=== PATIENT | female | born 1970 | race Caucasian/White ===

== ENCOUNTER 2017-09-22 05:43 | Day surgery (SDC) | payer OTHER, SELFPAY ==
[2017-09-22] VITALS (10 sets, daily range): BP systolic 121–138; BP diastolic 73–96; PULSE 78–112; RESP 16–18; TEMP 36–37.6; O2SAT 96–100; BMI 29.0
[2017-09-22 06:20] LABS: Absolute Lymphocyte Count 2.42 X10^3/ul (0.83-4.51); Absolute Neutrophil Count 6.6 X10^3/uL (2.0-7.7); Basophil# 0.03 X10^3/uL; Basophil% 0.3 % (0-1); Eosinophil# 0.26 X10^3/uL; Eosinophils% 2.6 % (0-5); Hematocrit 39.1 % (37-47); Hemoglobin 12.6 g/dl (12.0-15.0); Lymphocyte # 2.42 X10^3/ul (4.0); Mean Corp Hgb Conc 32.2 g/gl (32-36); Mean Corpuscular Hgb 30.5 pg (27.0-32.0); Mean Corpuscular Volume 94.7 fL (81-99); Mean Platelet Vol. 9.6 fl (6.2-12.0); Monocyte# 0.75 X10^3/uL; Monocyte% 7.4 % (0-10); Neutrophil # 6.61 X10^3/uL (2.7-7.7); Neutrophil % 65.6 % (47-70); Platelet Count 335 K/mm3 (150-450); RBC Distribution Width CV 14.1 % (11.6-14.6); RBC Distribution Width SD 47.4 fl (35.1-43.9); Red Blood Count 4.13 M/mm3 (4.2-5.4); White Blood Count 10.1 K/mm3 (4.4-11.0)
[2017-09-22 06:30] LABS: POSITIVE COUNT NO; POSITIVE DIFFERENTIAL NO; POSITIVE MORPHOLOGY NO
[2017-09-22 06:40] LABS: Internal QC Validated? YES +Cl - CLEAR BKGD; Pregnancy, Urine Negative Negative
--- NOTE | 2017-09-22 07:15 | HYST_PTH ---
PATIENT: DEVAUGHN ZARATE [place] [facility] [place][id number] AGE/SX: 46/F ROOM: RE09/22/[address]: Dr. Shasha Means MD : 1970 BED: DIS: 09/22/2017 SPEC #: [id number] RECD: 09/22/17 11:21 STATUS: ZAC CONTRERAS #: [id number] JUSTUS: 09/22/17 07:[address]: Shasha Means DEPT: SURGICAL PATHOLOGY RECD BY: Zeus Contreras ENTERED: 09/22/17 11:22 SP TYPE: HYSTERECT OTHR DR: Dr. Mariela Herrera, DO Tissues: Uterus, NOS Procedures: Surgery Specimen Level V HEADER OPERATION: Total vaginal hysterectomy PRE-OP DIAGNOSIS: Dysmenorrhea, menorrhagia with regular cycle, uterine fibroid TISSUE SUBMITTED: Uterus and cervix MICROSCOPIC DIAGNOSIS Uterus and cervix, vaginal hysterectomy: Cervix - no pathologic diagnosis. Endometrium ? secretory endometrium. Myometrium ? leiomyomas, intramural, submucosal and subserosal (largest measuring 3.5 cm in greatest dimension). ALEXANDRA:abiodun 09/23/17 MICROSCOPIC DESCRIPTION Slides are reviewed. GROSS DESCRIPTION Received in fixative is one container labeled with the patient's name and designated uterus. The specimen consists of a uterus with attached cervix measuring 10.7 x 6 x 5.2 cm and weighing 128 gm. The ectocervix is unremarkable. The cervical os is oval in contour. The endocervical canal measures 3.2 cm in length and is grossly unremarkable. The triangular endometrial cavity measures 4 x 2.5 cm. The light alatorre, velvety endometrium measures up to 0.2 cm in thickness. The myometrium measures 1.8 cm in average thickness and is distorted by multiple spherical, rubbery nodules ranging in size from 0.5 to 3.5 cm in greatest dimension. The nodules are submucosal, intramural and subserosal in location. Also present free in the container is an irregular fragment of reddish-alatorre soft tissue measuring 3.5 x 1 x 0.5 cm. [employer] sections are submitted in nine cassettes as follows: 1 - anterior cervix, 2 - posterior cervix, 3 & 4 - anterior uterine wall, 5 & 6 - posterior uterine wall, 7 ? largest myometrial mass, 8 ? second and third largest myometrial masses, 9 ? fragment of tissue free in the container. / AM:abiodun 09/22/17 TC:1 [facility]: [id number]
[2017-09-22] MEDS: Vasopressin 20 UNITS/ML Vial (07:41)
[2017-09-22] MEDS: Ketorolac 30 MG/ML Syringe IV ×2 (11:05→16:04)
[2017-09-22] MEDS: Lactated Ringers 1,000 ML 125 ML IV (11:07)
[2017-09-22] MEDS: buPROPion (XL) 300 MG TABLET.XL PO (12:35)
[2017-09-22] MEDS: Acetaminophen 500 MG Tablet 1000 MG PO (14:32)
--- NOTE | 2017-09-22 15:20 | PCM.DC.VHY ---
Discharge Diet: No Restrictions Discharge Activity: Return to Normal Activity, May Not Drive, May Shower May resume sexual activity in: 6-8 weeks Call your doctor if your incision/area has: Continuous Slow Oozing, Sudden Increased Bleeding, Increased Pain/ Swelling, Increased Redness, Foul Smelling Discharge Call your doctor if you observe: Fever of 101 or Higher, Inability to urinate, Inability to have a bowel movement, Using more than one pad per hour Allergies/Adverse Reactions: Allergies No Known Allergies Allergy (Unverified 09/15/17 13:27) Medications to take at Discharge cholecalciferol (vitamin D3) 5,000 unit capsule 5,000 unit PO DAILY 06/16/17 lactobacillus combination no.8 3 billion cell capsule 3,000 mmu cells PO QDAY 06/16/17 multivitamin,ca-mwre-abuhtlxh tablet 1 tab PO QDAY 06/16/17 bupropion HCl XL 300 mg 24 hr tablet, extended release 300 mg PO QAM 07/14/17 Ibuprofen [Motrin] 600 mg PO Q6H PRN PRN #30 tab 09/22/17 Naproxen [Naprosyn] 250 - 500 mg PO Q8H PRN PRN #30 tab 09/22/17 Oxycodone HCl/Acetaminophen [Percocet 5-325] 2 tablet PO Q4H PRN PRN 7 Days #28 tablet 09/22/17 The following prescriptions were given: Oxycodone HCl/Acetaminophen [Percocet 5-325] 2 tablet PO Q4H PRN PRN 7 Days #28 tablet PRN Reason: Moderate-Severe pain Ibuprofen [Motrin] 600 mg PO Q6H PRN PRN #30 tab PRN Reason: Pain Naproxen [Naprosyn] 250 - 500 mg PO Q8H PRN PRN #30 tab PRN Reason: MILD PAIN Primary Care Physician: Mariela Herrera DO [Primary Care Provider] - Please Follow Up With: Shasha Means MD - [phone]
--- NOTE | 2017-09-22 15:23 | OP.PCM_ITS ---
Report of Operation Date of Procedure: 09/22/17 Pre-Operative Diagnosis: aub fibroids Post-Operative Diagnosis: same Surgery/Procedure Performed:: total vaginal hysterectomy Type of Anesthesia:: General Specimen's removed: uterus Drains: freeman Estimated Blood Loss (mL): 100 Fluids Replaced: crystalloid Description of Procedure: Patient was taken to the operating room and was placed under general anesthesia was prepped and draped in normal sterile fashion in the dorsal lithotomy position. Preoperative antibiotics and SCDs and Freeman catheter was placed inside the bladder. Weighted speculum was placed in the vagina and the anterior and posterior lip of the cervix was grasped with 2 Eric clamps and circumferentially injected with dilute vasopressin. A circumferential incision was made with a scalpel and the posterior cul-de-sac was entered into sharply and a longneck speculum was placed. The anterior cul-de-sac was also dissected down and entered into sharply and the uterosacral ligaments were clamped cut and suture ligated bilaterally followed by the cardinal ligaments which were Clamped cut and suture ligated bilaterally with 0 Monocryl. The uterus serially descended and progressive bites were taken bilaterally up to the level of the utero-ovarian ligament bilaterally which was clamped transected and double ligated with 0 Monocryl suture and 0 Vicryl free tie. Bilateral fallopian tubes and ovaries were well visualized and noted be within normal limits and the bilateral fallopian tubes were transected across the base with a Priti clamp and removed and sutured with 0 Vicryl suture. Excellent hemostasis was noted. Posterior peritoneum was reapproximated with 2-0 Vicryl and a modified Watt stitch was placed through the posterior vaginal cuff and bilateral uterosacral ligaments across the posterior cul-de-sac skimming along to provide apical support to the vagina. The vagina was closed with figure-of- eight 0 Vicryl pop offs including the posterior and anterior peritoneum in the reapproximation. Excellent hemostasis was noted. All instruments removed from the vagina clear urine was noted at the end of the procedure and patient was awoken and taken recovery in stable condition. Grafts/Implants Used: none - Complications none - Admit VTE Documentation VTE Present on Admission: No VTE Mechan Device Prophylaxis: SCD's
[2017-09-22 16:57] LABS: Absolute Lymphocyte Count 0.91 X10^3/ul (0.83-4.51); Absolute Neutrophil Count 14.2 X10^3/uL (2.0-7.7); Hemoglobin 11.3 g/dl (12.0-15.0); Lymphocyte # 0.91 X10^3/ul (4.0); Lymphocyte % 5.9 % (19-41); Mean Corp Hgb Conc 32.3 g/gl (32-36); Mean Corpuscular Hgb 29.9 pg (27.0-32.0); Mean Corpuscular Volume 92.6 fL (81-99); Mean Platelet Vol. 9.5 fl (6.2-12.0); Monocyte# 0.25 X10^3/uL; Monocyte% 1.6 % (0-10); Neutrophil # 14.17 X10^3/uL (2.7-7.7); Neutrophil % 92.3 % (47-70); Platelet Count 306 K/mm3 (150-450); RBC Distribution Width SD 47.4 fl (35.1-43.9); Red Blood Count 3.78 M/mm3 (4.2-5.4); White Blood Count 15.4 K/mm3 (4.4-11.0)
[2017-09-22 17:17] LABS: POSITIVE COUNT NO; POSITIVE DIFFERENTIAL NO; POSITIVE MORPHOLOGY NO
[2017-09-22] MEDS: oxyCODONE 5 MG Tablet PO (20:16)
--- NOTE | 2017-09-23 06:23 | PCM.OPRPT ---
Problem List (1) Factor V deficiency Status: Acute (2) Dysmenorrhea Status: Chronic (3) Menorrhagia with regular cycle Status: Chronic (4) Uterine fibroid Status: Chronic Qualifiers: Uterine leiomyoma location: unspecified location Qualified Code(s): D25.9 - Leiomyoma of uterus, unspecified; D25.9 - Leiomyoma of uterus, unspecified Report of Operation Date of Procedure: 09/22/17 Pre-Operative Diagnosis: aub fibroids Post-Operative Diagnosis: same Surgery/Procedure Performed:: total vaginal hysterectomy Description of Surgical Findings:: fibroid uterus normal tubes and ovaries shared services manager: Swati Gonzalez Type of Anesthesia:: General Specimen's removed: uterus Drains: freeman Estimated Blood Loss (mL): 100 Fluids Replaced: crystalloid Description of Procedure: Patient was taken to the operating room and was placed under general anesthesia was prepped and draped in normal sterile fashion in the dorsal lithotomy position. Preoperative antibiotics and SCDs and Freeman catheter was placed inside the bladder. Weighted speculum was placed in the vagina and the anterior and posterior lip of the cervix was grasped with 2 Eric clamps and circumferentially injected with dilute vasopressin. A circumferential incision was made with a scalpel and the posterior cul-de-sac was entered into sharply and a longneck speculum was placed. The anterior cul-de-sac was also dissected down and entered into sharply and the uterosacral ligaments were clamped cut and suture ligated bilaterally followed by the cardinal ligaments which were Clamped cut and suture ligated bilaterally with 0 Monocryl. The uterus serially descended and progressive bites were taken bilaterally up to the level of the utero-ovarian ligament bilaterally which was clamped transected and double ligated with 0 Monocryl suture and 0 Vicryl free tie. Bilateral fallopian tubes and ovaries were well visualized and noted be within normal limits and the bilateral fallopian tubes were transected across the base with a Priti clamp and removed and sutured with 0 Vicryl suture. Excellent hemostasis was noted. Posterior peritoneum was reapproximated with 2-0 Vicryl and a modified Watt stitch was placed through the posterior vaginal cuff and bilateral uterosacral ligaments across the posterior cul-de-sac skimming along to provide apical support to the vagina. The vagina was closed with [id number] 0 Vicryl pop offs including the posterior and anterior peritoneum in the reapproximation. Excellent hemostasis was noted. All instruments removed from the vagina clear urine was noted at the end of the procedure and patient was awoken and taken recovery in stable condition. Grafts/Implants Used: none
--- NOTE | 2017-10-10 12:38 | PCM.HP.OB ---
- Problem List (1) Factor V deficiency Status: Acute (2) Dysmenorrhea Status: Chronic (3) Menorrhagia with regular cycle Status: Chronic (4) Uterine fibroid Status: Chronic Qualifiers: Uterine leiomyoma location: unspecified location Qualified Code(s): D25.9 - Leiomyoma of uterus, unspecified; D25.9 - Leiomyoma of uterus, unspecified History Date of Admission: 09/22/17 History of this : 46 yo presents with AUB and uterine fibroids, dysmenorrhea for a hysterectomy. Pertinent Past Medical History: Past Medical History (Last Reviewed 10/07/17 @ 10:21 by Hiwot Pruett) Back problem (Acute) Blood Clots (Acute) Frequent headaches (Acute) Migraines (Acute) Past Surgical History (Last Reviewed 10/07/17 @ 10:21 by Hiwot Pruett) ankle surgery (Acute) S/P laparoscopic assisted vaginal hysterectomy (LA[facility]) (Resolved ~10/06/17) All Active Problems (Last Reviewed 10/07/17 @ 10:21 by Hiwot Pruett) Factor V deficiency (Acute) Allergies No Known Allergies Allergy (Verified 10/07/17 10:22) Smoking Status: Never smoker Alcohol: None Drug Use: none Review of Systems Constitutional: Denies: Chills, Fever, Weight Change HEENT: Denies: Head Aches, Sinus Congestion, Sinus Drainage Cardiovascular: Denies: Chest Pain, Palpitations Respiratory: Denies: Cough, Shortness of breath at rest, Sputum production Gastrointestinal: Denies: Abdominal Pain, Nausea, Vomiting Genitourinary: Denies: Dysuria Gynecological: Reports: Vaginal bleeding Musculoskeletal: Denies: Joint Pain, Joint Tenderness Skin: Denies: Rash, Wounds Neurological: Denies: Numbness, Tingling, Focal weakness Psychiatric: Denies: Anxiety, Depression, Homicidal Ideations, Suicidal Ideations Hematologic/ Lymphatic: Denies: Easy Bruising, Easy Bleeding Physical Exam Vitals: Vital Signs Temp Pulse Resp BP Pulse Ox 99.7 F H 86 16 132/85 H 98 09/22/17 20:07 09/22/17 20:07 09/22/17 20:07 09/22/17 20:07 09/22/17 20:07 General: Alert, Oriented x3, No apparent distress Cardiovascular: Regular rate, Regular Rhythm Lungs: Clear to auscultation Abdomen: Bowel Sounds Present, Soft, Non Tender Assessment/Plan 46 yo presents with enlarged uterus, uterine fibroid, AUB and dysmenorrhea plan hyterectomy- recommend perioperative anticoagulation due to factor V leiden
== END 2017-09-22 20:20 | disposition home or self-care (01) ==
LOC: SDC 05:44 → AC 05:53 → MS2 08:29
PROVIDERS: Family Provider Internal Medicine; PCP Internal Medicine; Visit Provider Obstetrics & Gynecology
PROC: 0UT9FZZ Resection of Uterus, Via Natural or Artificial Opening With Percutaneous Endoscopic Assistance (ICD-10-PCS; CPT 58260; principal; 2017-09-22 06:50)
DX: D25.1 Intramural leiomyoma of uterus (principal); D25.0 Submucous leiomyoma of uterus; D25.2 Subserosal leiomyoma of uterus; F32.9 Major depressive disorder, single episode, unspecified; Z86.718 Personal history of other venous thrombosis and embolism; D68.51 Activated protein C resistance; Z79.899 Other long term (current) drug therapy
CPT/HCPCS: 00940; 58260; 36415; 81025; 85025; 86850; 86900; 88307; J7120; J2405

== ENCOUNTER → 2018-04-27 15:20 | Outpatient (CLI) | payer OTHER, SELFPAY ==
--- NOTE | 2018-04-27 15:22 | BI_ITS ---
MAMMOGRAPHY - BILATERAL SCREENING REASON FOR EXAM: Female, 47 years old. Routine annual screening examination. PERTINENT HISTORY: Non-contributory. TECHNIQUE: Digital bilateral breast marielena (3D mammographic acquisition) in the CC and MLO projections. 2-D mediolateral oblique (MLO) and craniocaudad (CC) views of both breasts were obtained. CAD: Full Field Digital Mammography with Computer Added Detection was performed. COMPARISON: Comparison is made with prior examination dated April 14, 2017 and December 19, 2014. FINDINGS: Breast Composition: The breasts are heterogeneously dense, which may obscure small masses. There are no dominant masses or suspicious calcifications. Stable small bilateral axillary lymph nodes. No other significant abnormalities are identified. There has been no significant change since the prior study. BI/SCREENING MAMM (CAD), BILAT IMPRESSION: Stable bilateral screening mammogram. Yearly follow-up mammogram recommended. (A) ASSESSMENT CATEGORY: BIRADS Category 2: Benign. A letter regarding these results will be sent to the patient by the facility within 30 days. Approximately 10% of breast cancers are not detected by mammography. A normal mammogram should not delay biopsy of a clinically suspicious abnormality. [id number] Electronically Signed: Jonn He MD at 16:07 EST Tel [phone], Service support ,
== END ==
PROVIDERS: Family Provider Internal Medicine; PCP Internal Medicine; Referring Provider Internal Medicine; Visit Provider Internal Medicine
DX: Z12.31 Encounter for screening mammogram for malignant neoplasm of breast (principal)
CPT/HCPCS: 77063; 77067

== ENCOUNTER → 2019-07-24 17:30 | Outpatient (CLI) | payer BC, SELFPAY ==
--- NOTE | 2019-07-24 17:15 | BI_ITS ---
MAMMOGRAPHY - BILATERAL SCREENING REASON FOR EXAM: Female, 48 years old. Routine annual screening examination. PERTINENT HISTORY: Non-contributory. TECHNIQUE: Digital bilateral breast kyleigh (3D mammographic acquisition) in the CC and MLO projections. 2-D mediolateral oblique (MLO) and craniocaudad (CC) views of both breasts were obtained. CAD: Full Field Digital Mammography with Computer Added Detection was performed. COMPARISON: Comparison is made with prior study dated April 27, 2018 and April 14, 2017. FINDINGS: Breast Composition: The breasts are heterogeneously dense, which may obscure small masses. There are no dominant masses or suspicious calcifications. Stable small benign-appearing bilateral axillary lymph nodes. No other significant abnormalities are identified. There has been no significant change since the prior study. BI/SCREEN MAMM (CAD) W/KYLEIGH BILAT IMPRESSION: Stable bilateral screening mammogram. Yearly follow-up mammogram recommended. (A) ASSESSMENT CATEGORY: BIRADS Category 2: Benign. A letter regarding these results will be sent to the patient by the facility within 30 days. Approximately 10% of breast cancers are not detected by mammography. A normal mammogram should not delay biopsy of a clinically suspicious abnormality. [id number] Electronically Signed: Jonn He, at 14:02 EST , Service support ,
== END ==
PROVIDERS: PCP Internal Medicine; Referring Provider Internal Medicine; Visit Provider Internal Medicine
DX: Z12.31 Encounter for screening mammogram for malignant neoplasm of breast (principal)
CPT/HCPCS: 77063; 77067

== ENCOUNTER → 2020-03-27 13:00 | Outpatient (CLI) | payer BC, SELFPAY | PROVIDERS: PCP Internal Medicine; Referring Provider Nurse Practitioner; Visit Provider Nurse Practitioner | DX: R00.2 Palpitations (principal) | CPT/HCPCS: 93225 ==

== ENCOUNTER → 2020-04-15 06:47 | Outpatient (CLI) | PROVIDERS: PCP Internal Medicine; Referring Provider Internal Medicine; Visit Provider Internal Medicine | DX: R06.02 Shortness of breath (principal); R00.2 Palpitations | CPT/HCPCS: 94060; 94726; 94729 ==

== ENCOUNTER → 2020-04-24 07:42 | Outpatient (CLI) ==
[2017-11-10 10:47] VITALS: BMI 28.0
--- NOTE | 2020-04-24 07:45 | ECHOD_ITS ---
Reason For Study: PALPITATIONS Procedure This was a 2D Doppler, Color Flow transthoracic echocardiogram. Exam performed in department. Left Ventricle Normal LV size. The estimated ejection fraction is 60 %. No evidence for diastolic dysfunction. Right Ventricle Normal RV size. Normal systolic function. Atria Normal left atrium. Normal right atrium. No doppler evidence for ASD. Mitral Valve There is no mitral valve stenosis. Trivial mitral valve insufficiency. Tricuspid Valve There is no tricuspid stenosis. Trivial tricuspid valve insufficiency. Pulmonary artery systolic pressure is 20 mmHg. Aortic Valve Trisinus/trileaflet aortic valve. There is no aortic stenosis. No aortic valve insufficiency. Pulmonic Valve There is no pulmonic valvular stenosis. No pulmonic valve insufficiency. Great Vessels Normal aortic root. Pericardium/Pleural No pericardial effusion. MMode/2D Measurements & Calculations LVIDd: 3.7 cm IVSd: 0.78 cm LAV(MOD-bp): 30.8 ml LVIDs: 2.6 cm LVPWd: 0.84 cm LAV(MOD-bp) Indexed: 17.5 ml/m2 RVDd: 2.7 cm FS: 30.9 % LAV(MOD-sp2): 31.1 ml LAV(MOD-sp4): 31.3 ml SV(MOD-sp4): 35.8 ml SV(sp4-el): 38.1 ml LVAd ap4: 22.0 cm2 EDV(MOD-sp4): 55.5 ml EDV(sp4-el): 58.1 ml LVAs ap4: 10.9 cm2 ESV(MOD-sp4): 19.7 ml ESV(sp4-el): 20.0 ml EF(MOD-sp4): 64.6 % EF(sp4-el): 65.6 % LA A4 area: 13.4 cm2 LA dimension(2D): 3.1 cm RA A4 area: 10.2 cm2 Time Measurements MV dec time: 0.16 sec Doppler Measurements & Calculations MV E max sean: 63.8 cm/sec Lat Peak E' Sean: 10.1 cm/sec Med Peak E' Sean: 6.2 cm/sec MV A max sean: 74.5 cm/sec E/E' lat: 6.3 E/E' med: 10.3 MV E/A: 0.86 Ao V2 max: 107.5 cm/sec LV V1 max: 82.8 cm/sec TR max sean: 199.8 cm/sec Ao max P.6 mmHg LV V1 max P.7 mmHg TR max P.0 mmHg Interpretation Summary The estimated ejection fraction is 60 %. No evidence for diastolic dysfunction. Trivial mitral valve insufficiency. Ordering Physician: Mariela Herrera Referring Physician: Mariela Herrera Performed By: Angelique Bowers, DAYANA, RVT
== END ==
PROVIDERS: PCP Internal Medicine; Referring Provider Internal Medicine; Visit Provider Internal Medicine
DX: R00.2 Palpitations (principal); R06.02 Shortness of breath
CPT/HCPCS: 93306

== ENCOUNTER → 2020-04-26 09:14 | Outpatient (CLI) | payer BC, SELFPAY ==
[2017-11-10 10:47] VITALS: BMI 28.0
--- NOTE | 2020-04-26 09:18 | US_ITS ---
STUDY: THYROID ULTRASOUND REASON FOR EXAM: Female, 49 years old. F/U NODULES TECHNIQUE: Ultrasound evaluation of the thyroid was performed with real-time and static ragsdale-scale imaging. COMPARISON: 09/20/2016 FINDINGS: RIGHT LOBE: The right lobe of the thyroid gland measures 5.0 x 1.2 x 1.2 cm. There is a homogeneous echotexture. There are a few tiny (less than 5 mm) colloid cyst. LEFT LOBE: The left lobe of the thyroid gland measures 4.4 x 1.1 x 1.0 cm. There is a homogeneous echotexture. There are a few tiny (less than 5 mm) colloid cyst. Nodule 1: Shrinking 4 x 4 by 4 mm (from 9 x 4 x 7 mm mixed cystic and solid hypoechoic wider than tall ill-defined marginated nodule with no echogenic foci (TR 3) in the anterior left lobe. ISTHMUS: The isthmus measures 2 mm thick . The regional lymph nodes are normal. US/Thyroid IMPRESSION: Multiple tiny colloid cysts with a shrinking mixed cystic and solid nodule in the anterior left lobe. Follow-up ultrasound in one year may be useful. Electronically Signed: Neil Montgomery MD at 10:41 EST Tel , Service support ,
== END ==
PROVIDERS: PCP Internal Medicine; Referring Provider Internal Medicine; Visit Provider Internal Medicine
DX: E04.2 Nontoxic multinodular goiter (principal)
CPT/HCPCS: 76536

== ENCOUNTER → 2020-11-28 08:34 | Outpatient (CLI) | payer BC, SELFPAY ==
--- NOTE | 2020-11-28 08:40 | BI_ITS ---
MAMMOGRAPHY - BILATERAL DIAGNOSTIC REASON FOR EXAM: Female, 50 years old. One-month history of left breast pain. PERTINENT HISTORY: Non-contributory. TECHNIQUE: Digital bilateral breast marielena (3D mammographic acquisition) in the CC and MLO projections. 2-D mediolateral oblique (MLO) and craniocaudad (CC) views of both breasts were obtained. CAD: Full Field Digital Mammography with Computer Added Detection was performed. COMPARISON: Comparison is made with prior study dated 07/24/2019 and 04/27/2018. FINDINGS: Breast Composition: The breasts are heterogeneously dense, which may obscure small masses. There are no dominant masses or suspicious calcifications. Stable benign-appearing bilateral axillary lymph nodes. No other significant abnormalities are identified. There has been no significant change since the prior study. BI/DIAG MAMM W/CAD, BILAT IMPRESSION: Stable bilateral diagnostic mammogram. With the patient''s history of left breast pain, correlation with ultrasound is recommended. ASSESSMENT CATEGORY: BIRADS Category 0: Incomplete. Need additional imaging evaluation. A letter regarding these results will be sent to the patient by the facility within 30 days. Approximately 10% of breast cancers are not detected by mammography. A normal mammogram should not delay biopsy of a clinically suspicious abnormality. Electronically Signed: Jonn He MD at 9:47 EDT , Service support ,
--- NOTE | 2020-11-28 09:20 | US_ITS ---
STUDY: ULTRASOUND BREAST - LEFT REASON FOR EXAM: Female, 50 years old. Pain in the left breast. TECHNIQUE: Axial and longitudinal images of the LEFT breast were performed with a high resolution ultrasound transducer. # OF IMAGES: 31 COMPARISON: Comparison is made with prior mammogram done earlier today. FINDINGS: LEFT Breast: The upper outer half of the left breast was examined by ultrasound. No sonographic abnormality is seen. US/Breast Limited Unilateral IMPRESSION: No sonographic abnormality is seen. ASSESSMENT CATEGORY: BIRADS Category 1: Negative. A letter regarding these results will be sent to the patient by the facility within 30 days. Electronically Signed: Jonn He MD at 11:21 EDT , Service support ,
== END ==
PROVIDERS: PCP Internal Medicine; Referring Provider Internal Medicine; Visit Provider Internal Medicine
DX: N63.21 Unspecified lump in the left breast, upper outer quadrant (principal)
CPT/HCPCS: 76642; 77062; 77066; G0279

== ENCOUNTER → 2022-10-05 | Outpatient (CLI) | payer BC, SELFPAY ==
--- NOTE | 2022-10-05 12:15 | BI_ITS ---
MAMMOGRAPHY - BILATERAL SCREENING REASON FOR EXAM: Female, 51 years old. Routine annual screening examination. PERTINENT HISTORY: Non-contributory. TECHNIQUE: Digital bilateral breast kyleigh (3D mammographic acquisition) in the CC and MLO projections. 2-D mediolateral oblique (MLO) and craniocaudad (CC) views of both breasts were obtained. CAD: Full Field Digital Mammography with Computer Added Detection was performed. COMPARISON: Comparison is made with prior examination dated November 28, 2020 and July 24, 2019. FINDINGS: Breast Composition: The breasts are heterogeneously dense, which may obscure small masses. There are no dominant masses or suspicious calcifications. Stable small benign-appearing bilateral axillary lymph nodes. No other significant abnormalities are identified. There has been no significant change since the prior study. BI/SCRN MAMM (CAD)W/KYLEIGH BILAT IMPRESSION: Stable bilateral screening mammogram. Yearly follow-up mammogram recommended. (A) ASSESSMENT CATEGORY: BIRADS Category 2: Benign. A letter regarding these results will be sent to the patient by the facility within 30 days. Approximately 10% of breast cancers are not detected by mammography. A normal mammogram should not delay biopsy of a clinically suspicious abnormality. [id number] Electronically Signed: Jonn He MD at 14:37 EDT ,
--- NOTE | 2022-10-05 12:15 | US_ITS ---
STUDY: THYROID ULTRASOUND REASON FOR EXAM: Female, 51 years old. f/u thyroid US -- f/u thyroid US TECHNIQUE: Ultrasound evaluation of the thyroid was performed with real-time and static ragsdale-scale imaging. COMPARISON: April 26, 2020 ultrasound thyroid FINDINGS: RIGHT LOBE: The right lobe of the thyroid gland measures 4.8 x 1.6 x 1.5 cm. There is a homogeneous echotexture. There are no demonstrated solid, cystic or complex lesions. There is an anechoic well-circumscribed ovoid wider than tall 2.9 x 0.1 x 0.3 nodule. There is a visualized 0.3 x 0.1 x 0.3 cm anechoic nodule. There is visualized. Would 4 x 0.3 x 0.2 anechoic well-circumscribed nodule. T rads : calculation benign. LEFT LOBE: The left lobe of the thyroid gland measures 4.5 x 1.5 x 1.3 cm. There is a homogeneous echotexture. There are no demonstrated solid, cystic or complex lesions. On the left side there is a 0.2 x 0.3 x 0.2 cm well-circumscribed mostly anechoic nodule with a centrally located calcification without vascularity. There is a hypoechoic nodule with peripheral vascularity minimal internal echogenicity measuring 0.4 x 0.4 x 0.4 cm. There is a nodule measuring 0.6 x 0.4 x 0.6 cm listed the isthmus which is solid in appearance and given its appearance may represent the nodule that was seen on the prior study measuring 0.4 x 0.3 cm. On today''s study and may incorporate a more cystic structure it could measure up to 7.7 mm and sagittal view there is an adjacent cyst ISTHMUS: The isthmus measures 1.7 mm . The regional lymph nodes are normal. US/Thyroid IMPRESSION: There is a image #58 hypoechoic mostly solid-appearing nodule within the left thyroid which is enlarged when compared to the prior study now measuring 0.6 x 0.4 x 0.6 cm relatively up to 7.7 mm when on prior study measured approximately 0.4 x 0.4 x 0.4 cm. On the prior study September 30, 2016 this appeared to be a cystic nodule. Given interval change recommend consideration for follow-up fine-needle aspiration biopsy. The remainder of the small subcentimeter cystic structures appear benign. Electronically Signed: Ursula Dwyer MD at 5:33 EDT Reading Location ID and State: [facility] / [place] Tel , Service support ,
== END | disposition home or self-care (01) ==
PROVIDERS: PCP Internal Medicine; Referring Provider Internal Medicine; Visit Provider Internal Medicine
DX: Z12.31 Encounter for screening mammogram for malignant neoplasm of breast (principal); E04.1 Nontoxic single thyroid nodule
CPT/HCPCS: 76536; 77063; 77067

== ENCOUNTER → 2023-04-12 | Outpatient (CLI) | payer BC, SELFPAY ==
--- NOTE | 2023-04-12 18:17 | US_ITS ---
STUDY: THYROID ULTRASOUND REASON FOR EXAM: Female, 52 years old. Known nodules TECHNIQUE: Ultrasound evaluation of the thyroid was performed with real-time and static ragsdale-scale imaging. COMPARISON: Multiple previous studies, the most recent from 10/05/2022 FINDINGS: RIGHT LOBE: The right lobe of the thyroid gland measures 5.4 x 1.3 x 1.3 cm. There is a homogeneous echotexture. There are stable subcentimeter cysts. Chef Saucier notes at least 3 with the largest measuring 0.5 x 0.4 x 0.3 cm. Nodules are cystic or nearly completely cystic. TI-RADS points: 0. TI-RADS category: TR1. Nodules are benign and no FNA or follow-up is necessary. LEFT LOBE: The left lobe of the thyroid gland measures 4.5 x 1.1 x 1.0 cm. There is a homogeneous echotexture. Multiple stable hypoechoic solid nodules largest measures 0.7 x 0.6 x 0.5 cm. Nodules are solid or almost completely solid, hypoechoic, [id number], smoothly marginated and contains no echogenic foci. TI-RADS points: 4. TI-RADS category: TR4. Nodules are moderately suspicious but no FNA or follow-up is necessary given the small size of this nodule. ISTHMUS: The isthmus measures 0.3 cm. The regional lymph nodes are normal. US/Thyroid IMPRESSION: Enlarged right lobe of the thyroid with stable cysts in the right lobe of the thyroid and subcentimeter solid nodules in the left lobe. Catheterization and follow-up as listed above Electronically Signed: Malik Galvez MD at 8:26 EDT ,
== END | disposition home or self-care (01) ==
PROVIDERS: PCP Internal Medicine; Visit Provider Internal Medicine
DX: E04.2 Nontoxic multinodular goiter (principal)
CPT/HCPCS: 76536

== ENCOUNTER → 2024-06-19 | Outpatient (CLI) | payer BC, SELFPAY ==
--- NOTE | 2024-06-19 11:58 | BI_ITS ---
MAMMOGRAPHY - BILATERAL SCREENING 3-D TOMOSYNTHESIS REASON FOR EXAM: Female, 53 years old. Bilat Brst Screen Kyleigh Add-On -- Encounter for screening mammogram for malignant neoplams of breas PERTINENT HISTORY: No significant family history. TECHNIQUE: 2-D mammograms and 3-D Tomosynthesis of the breast (s) were performed. CAD was performed. COMPARISON: 10/05/2022 FINDINGS: The breast composition is composed of scattered fibroglandular density. Scattered benign calcifications are seen. No dense spiculated masses or suspicious microcalcifications are identified. No architectural distortion is identified. There is no skin thickening or retraction. There has been no significant change since the prior study. BI/SCRN MAMM (CAD)W/KYLEIGH BILAT IMPRESSION: No mammographic signs of malignancy. Routine yearly mammograms recommended. ASSESSMENT CATEGORY: BIRADS Category 1: Negative. A letter regarding these results will be sent to the patient by the facility within 30 days. FOLLOW UP RECOMMENDATION: Yearly follow up mammogram recommended. (A) Approximately 10% of breast cancers are not detected by mammography. A normal mammogram should not delay biopsy of a clinically suspicious abnormality. Electronically Signed: Neil Montgomery MD at 19:53 EST ,
== END | disposition home or self-care (01) ==
LOC: OPBI 11:57
PROVIDERS: PCP Internal Medicine; Visit Provider Internal Medicine
DX: Z12.31 Encounter for screening mammogram for malignant neoplasm of breast (principal)
CPT/HCPCS: 77063; 77067

== ENCOUNTER → 2024-07-07 | Outpatient (CLI) | payer BC, SELFPAY ==
--- NOTE | 2024-07-07 10:45 | US_ITS ---
EXAM: US SOFT TISSUES HEAD AND NECK, THYROID CLINICAL INDICATION: multiple thyroid nodules TECHNIQUE: Greyscale and color doppler imaging was performed of the thyroid gland. COMPARISON: Thyroid ultrasound 04/12/2023 FINDINGS: LEFT THYROID LOBE: 4.7 x 1.2 x 1.5 cm. There is nodule measuring 9 x 7 x 6 mm in the midportion. This nodule is solid or almost completely solid, hypoechoic, [id number], smoothly marginated and contains no echogenic foci. . This nodule is moderately suspicious (TI-RADS category: TR4) but no FNA or follow-up is necessary given the small size of this nodule. RIGHT THYROID LOBE: 5.3 x 1.4 x 1.9 cm, with a small cystic nodule measuring 4 x 3 x 3 mm. This nodule is benign (TI-RADS category: TR1) and no FNA or follow-up is necessary. Homogeneous echotexture with normal vascularity. ISTHMUS: Unremarkable. No thyroid nodules are present. US/Thyroid IMPRESSION: There is a left thyroid nodule measuring 9 x 7 x 6 mm in the midportion. This nodule is solid or almost completely solid, hypoechoic, [id number], smoothly marginated and contains no echogenic foci. This nodule is moderately suspicious (TI-RADS category: TR4) but no FNA or follow-up is necessary given the small size of this nodule, and no significant interval change compared with the March 2023 exam. Electronically Signed: Kb Edwards MD at 2:10 EST ,
--- NOTE | 2024-07-07 10:45 | US_ITS ---
STUDY: ABDOMINAL ULTRASOUND - RIGHT UPPER QUADRANT REASON FOR VISIT: Female, 53 years old. liver nodule TECHNIQUE: Ultrasound evaluation of the right upper quadrant was performed with real-time and static ragsdale-scale imaging. TECHNICAL QUALITY: Adequate. COMPARISON: None FINDINGS: Liver: There is increased echogenicity consistent with fatty infiltration. The bile ducts are within normal limits. There is hepatic color flow. The direction of portal flow is hepatopetal. There is no demonstrated mass lesion. Gallbladder: Normal distended gallbladder. The gallbladder wall measures 2 mm. There is a negative sonographic Dailey''s sign. There is no pericholecystic fluid. There are no gallstones. Common Bile Duct (C.B.D.): The common bile duct measures ( in mm): 5 Pancreas: Normal size of the head, body of the pancreas. There is normal echogenicity of the pancreas. There is no demonstrated pancreatic mass or cyst. Right Kidney: Normal size of the right kidney. The right kidney measures 10.6 cm. . Normal renal cortex. There is no demonstrated renal mass or cyst. There is no right hydronephrosis. Aorta: It is not visualized. There is too much overlying bowel gas. . US/Abdomen Limited IMPRESSION: Fatty liver. Note: Renal size measurements and size measurements of other organs etc may vary depending on modality and incubator machine operator dependent variations in measurements. (i.e. Measuring a kidney on an US does not correlate with an exact same measurement on a CT.) Electronically Signed: Kb Taveras MD at 16:09 EST ,
== END | disposition home or self-care (01) ==
PROVIDERS: PCP Internal Medicine; Referring Provider Internal Medicine; Visit Provider Internal Medicine
DX: K76.89 Other specified diseases of liver (principal); E04.2 Nontoxic multinodular goiter
CPT/HCPCS: 76536; 76705

== ENCOUNTER → 2025-01-23 | Outpatient (CLI) | payer BC, SELFPAY ==
--- NOTE | 2025-01-23 16:07 | RAD_ITS ---
PROCEDURE: CERV SPINE 4 OR 5 VIEWS 01/23/2025 REASON FOR EXAM: CERVICAL RADICULOPATHY TECHNIQUE: CERV SPINE 4 OR 5 VIEWS COMPARISON: None. FINDINGS: No evidence of fracture or subluxation. Alignment is anatomic. Mild multilevel spondylotic changes with varying degrees of disc space narrowing, endplate sclerosis and anterior osteophytosis, and hypertrophic facet arthropathy. Moderate-advanced neural foraminal narrowing on the right at C2-3. Unremarkable prevertebral soft tissues. RAD/Cerv Spine 4 or 5 Views IMPRESSION: No evidence of fracture or malalignment. Multilevel degenerative changes as de scribed. Reading Location: [id number]
--- NOTE | 2025-01-23 16:07 | RAD_ITS ---
PROCEDURE: CERV SPINE 4 OR 5 VIEWS 01/23/2025 REASON FOR EXAM: CERVICAL RADICULOPATHY TECHNIQUE: CERV SPINE 4 OR 5 VIEWS COMPARISON: None. FINDINGS: No evidence of fracture or subluxation. Alignment is anatomic. Mild multilevel spondylotic changes with varying degrees of disc space narrowing, endplate sclerosis and anterior osteophytosis, and hypertrophic facet arthropathy. Moderate-advanced neural foraminal narrowing on the right at C2-3. Unremarkable prevertebral soft tissues. RAD/Cerv Spine 4 or 5 Views IMPRESSION: No evidence of fracture or malalignment. Multilevel degenerative changes as de scribed. Reading Location: [id number]
[2025-01-23 18:00] LABS: Color, Urine Yellow (Yellow); Glucose, Dipstick Normal (Normal); Ketone-Dipstick Negative (Negative); Leukocyte Esterase-Dipstick Negative /ul (Negative); Nitrite-Dipstick Negative (Negative); Occult Blood-Urine 10 /ul (Negative); Protein-Dipstick 15 mg/dl (Negative); Specific Gravity, Urine 1.025 (1.002-1.030); Urine Bilirubin Dipstick Negative (Negative)
[2025-01-23 18:27] LABS: CRP 5.02 mg/L (0.0-3.0)
[2025-01-25 13:08] LABS: ANTINUCLEAR ANTIBODIES DIRECT Negative (Negative)
== END | disposition home or self-care (01) ==
LOC: MTLAB 16:06
PROVIDERS: PCP Internal Medicine; Referring Provider Internal Medicine; Visit Provider Internal Medicine
DX: M54.12 Radiculopathy, cervical region (principal)
CPT/HCPCS: 36415; 72050; 81002; 85652; 86038; 86140; 86431

== ENCOUNTER → 2025-04-16 | Outpatient (CLI) | payer BC, SELFPAY ==
[2025-04-16 14:39] LABS: Red Blood Cells-Urine 0 SEEN /hpf (0-5)
[2025-04-16 16:28] LABS: Hematocrit 44.6 % (37-47); Hemoglobin 14.1 g/dL (12.0-15.0); Mean Corp Hgb Conc 31.6 g/dL (32-36); Mean Corpuscular Volume 98.0 fL (81-99); Platelet Count 332 K/mm3 (150-450); Red Blood Count 4.55 M/mm3 (4.2-5.4); White Blood Count 5.8 K/mm3 (4.4-11.0)
[2025-04-16 16:30] LABS: Color, Urine Yellow (Yellow); Glucose, Dipstick Normal (Normal); Ketone-Dipstick Negative (Negative); Leukocyte Esterase-Dipstick Negative /ul (Negative); Nitrite-Dipstick Negative (Negative); Occult Blood-Urine 10 /ul (Negative); Protein-Dipstick 30 mg/dl (Negative); Specific Gravity, Urine 1.020 (1.002-1.030); Urine Bilirubin Dipstick Negative (Negative)
[2025-04-16 16:42] LABS: Mucous, Urine 2+ /hpf (<or=2+); Squamous Epithelial Cells - UA 5-10 SEEN /hpf (5-10)
[2025-04-16 16:45] LABS: AST(SGOT) 22 U/L (<=31); Alanine Aminotransfer ALT/SGPT 27 U/L (<=34); Albumin, Serum 4.6 g/dL (3.5-5.0); Alkaline Phosphatase 84 U/L (35-104); Anion Gap 10 (5-15); BUN 14 mg/dL (4-19); BUN/Creat Ratio 16.3 RATIO (10-20); Calcium,Total 9.1 mg/dL (7.6-11.0); Carbon Dioxide 23.8 mmol/L (21.0-32.0); Chloride 108 mmol/L (98-108); Globulin 2.5 g/dL (2.2-4.2); Glucose 103 mg/dL (70-99); Potassium 4.6 mmol/L (3.3-5.1)
[2025-04-16 16:49] LABS: Mean Platelet Vol. 10.1 fl (6.2-12.0); RBC Distribution Width CV 13.4 % (11.6-14.6); RBC Distribution Width SD 48.8 fl (35.1-43.9)
[2025-04-16 17:15] LABS: Neutrophil-Band 1 % (0-5); Neutrophil-Segmented 53 % (47-70); Total Cells Counted 100 (MANUAL DIFF)
== END | disposition home or self-care (01) ==
LOC: LABSPEC 13:24
PROVIDERS: PCP Internal Medicine; Referring Provider Internal Medicine; Visit Provider Internal Medicine
DX: E78.2 Mixed hyperlipidemia (principal)
CPT/HCPCS: 80053; 81001; 85007; 85027; 87086

== ENCOUNTER → 2025-05-06 | Outpatient (CLI) | payer BC, SELFPAY | END | disposition home or self-care (01) | LOC: LABSPEC 14:42 | PROVIDERS: PCP Internal Medicine; Referring Provider Internal Medicine; Visit Provider Internal Medicine | DX: R30.0 Dysuria (principal) | CPT/HCPCS: 87070; 87086; 87205 ==